=== PATIENT | male | born 1970 | race African-American/Black ===

== ENCOUNTER 2020-01-04 11:12 | Emergency (ER) | payer OTHER ==
[~2020-01-04] VITALS: Ht 170.2 cm; Wt 65.8 kg
[2020-01-04 11:17] VITALS: BP 151/100
[2020-01-04] MEDS ORDERED: KETOROLAC 30 MG/1 ML IM ONE (11:30)
[2020-01-04] MEDS ORDERED: PLEASE ENTER ALLERGIES MC SCH (11:34)
[2020-01-04] MEDS ORDERED: KETOROLAC 30 MG/1 ML ONE (11:36)
--- NOTE | 2020-01-04 11:48 | NUR ---
FIRST CONTACT WITH PT. [place] SPEAKING ONLY. PT HAD RIGHT SHOULDER SURGERY THREE YEARS AGO, OVER PAST THREE DAYS PT HAS INCREASED RIGHT SHOULDER/WRIST PAIN. PA SAW PROVIDER IN TRIAGE. PT DENIES CP. PT'S AOX4. RESPS EVEN AND UNLABORED. [facility] [id number]
--- NOTE | 2020-01-04 11:49 | NUR ---
PT BACK TO ROOM FROM XRAY AT THIS TIME.
--- NOTE | 2020-01-04 11:49 | NUR ---
PT MEDICATED PER EMAR. PT TOLERATED WELL.
--- NOTE | 2020-01-04 12:30 | NUR ---
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 RACER SPLINT APPLIED TO PT RIGHT WRIST. PAPERS RECEIVED TO DC PT.
== END 2020-01-04 12:59 | disposition home or self-care (01) ==
LOC: ED 12:31
DX: M77.9 Enthesopathy, unspecified (principal); M25.511 Pain in right shoulder; M75.91 Shoulder lesion, unspecified, right shoulder
CPT/HCPCS: 73030; 96372; 99283; J1885

== ENCOUNTER 2020-03-15 11:45 | Emergency (ER) | payer OTHER ==
[~2020-03-15] VITALS: Ht 167.6 cm; Wt 66.6 kg
[2020-03-15 11:47] VITALS: BP 116/91
--- NOTE | 2020-03-15 12:14 | NUR ---
RIGHT THUMB PAIN AFTER DROPPING AN OBJECT ON IT 2 DAYS AGO. PT HAS HAD PREVIOUS SURGERY ON SAME.
--- NOTE | 2020-03-15 12:14 | NUR ---
CORRECTION TO ABOVE NOTE: LEFT THUMB
[2020-03-15] MEDS ORDERED: HYDROcodone/APAP 5/325 TABLET PO PRN (12:30)
[2020-03-15] MEDS ORDERED: HYDROcodone/APAP 5/325 TABLET ONE (12:33)
--- NOTE | 2020-03-15 12:35 | NUR ---
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 MEDICATED NOTED ON DEC AFTER XRAY
--- NOTE | 2020-03-15 13:39 | NUR ---
DX AND DISCHARGE INSTRUCTIONS GIVEN VIA AT[employer] WELDER [id number]. AWAITING SPLINT PLACEMENT BY TECH
--- NOTE | 2020-03-15 14:07 | NUR ---
Patient given splint, discharge instructions and Rx, they have confirmed that they understand the instructions. Patient ambulatory with steady gait.
== END 2020-03-15 14:19 | disposition home or self-care (01) ==
LOC: ED 12:32
DX: S60.012A Contusion of left thumb without damage to nail, initial encounter (principal); S60.212A Contusion of left wrist, initial encounter; X50.0XXA Overexertion from strenuous movement or load, initial encounter; Y93.89 Activity, other specified; Y92.89 Other specified places as the place of occurrence of the external cause; Y99.8 Other external cause status
CPT/HCPCS: 29125; 99284